=== PATIENT | male | born 1955 | race Caucasian/White ===

== ENCOUNTER 2020-09-26 10:05 | Day surgery (SDC) | payer SELFPAY ==
[2020-09-26] MEDS ORDERED: Ringers Lactate 1,000 ML IV ONE (10:47)
[2020-09-26] MEDS ORDERED: VANCOMYCIN/NS 1 gm 1 GM/250 ML BAG IV ONE (11:45)
[2020-09-26] MEDS ORDERED: VANCOMYCIN 1 GM/VIAL ONE (11:54)
[2020-09-26] MEDS ORDERED: MIDAZOLAM HCL 2 MG/2 ML INJ ONE (12:50)
[2020-09-26] MEDS ORDERED: LIDOCAINE 2% MPF 5 ML VIAL ONE (12:50)
[2020-09-26] MEDS ORDERED: propofoL 200 MG/20 ML VIAL IV ONE (12:50)
[2020-09-26] MEDS ORDERED: BUPIVACAINE 0.25% PF 10 ML VIAL ONE (12:50)
[2020-09-26] MEDS ORDERED: FENTANYL CITR 100 MCG/2 ML ONE (12:50)
[2020-09-26] MEDS ORDERED: dexAMETHasone 10 MG/ML VIAL ONE (12:50)
--- NOTE | 2020-09-26 13:18 | P.OP ---
Preoperative diagnosis: Central Back Infected Sebaceous Cyst with Abscess Postoperative diagnosis: Central Back Infected Sebaceous Cyst with Abscess Primary procedure: Wide local excision of Central Back Infected Sebaceous Cyst with Abscess Anesthesia: GETA + Local Estimated blood loss: <10cc Specimen: cultures and debridement tissues Findings: 6cmx 6cm down into subcutanous fat cyst w/abscess Complications: None Transferred to: Recovery Room Condition: Good
[2020-09-26] MEDS ORDERED: KETOROLAC 30 MG/ML INJ ONE (13:32)
[2020-09-26 13:38] VITALS: O2SAT 100
[2020-09-26 15:08] VITALS: BP 137/73; TEMP 97.6
--- NOTE | 2020-09-26 23:31 | OP ---
Date of Procedure: 09/26/2020 Surgeon: Sanjiv Chong MD, Preoperative Diagnosis: Central back infected sebaceous cyst with abscess. Postoperative Diagnosis: Central back infected sebaceous cyst with abscess. Procedure Performed: Wide local excision of central back infected sebaceous cyst with abscess. Anesthesia: General endotracheal with local with 0.25% Marcaine. Estimated Blood Loss: Less than 10 mL. Specimen: Cultures and debridement tissue. Findings: A 6 x 6 cm down to subcutaneous fat cyst with abscess consistent with subcutaneous infecte d cyst. Complications: None. Disposition: The patient was transferred to recovery room in good condition. Procedure In Detail: After informed consent was obtained, the patient was brought to the operating r oom and prepped and draped in the usual sterile fashion. After adequate anesthesia was achieved, a c ircular area was cut out around an infected sebaceous cyst with abscess as it was skin necrosis and m ultiple holes through the skin at this area. The abscess was cultured for both aerobic and anaerobic speciation circumferentially. Dissection continued down with electrocautery to encompass the entire cyst. Sebaceous material with abscess was encountered and this was all removed in its entirety unti l good clean bleeding tissue was left behind. The area was copiously irrigated multiple times until completely clear. Hemostasis was achieved with electrocautery. At this point, the wound was packed with Betadine-soaked gauze and sterile dressing placed over top. The patient tolerated the procedure well without evidence of complication and transferred to PACU in good condition. All counts were co rrect at the end of the case. PATEL/GALLO Voice ID: [id number] Report ID: [id number]
== END 2020-09-26 15:00 | disposition home or self-care (01) ==
LOC: OR 10:05
PROVIDERS: ATTEND Surgery
PROC: 0JB70ZZ Excision of Back Subcutaneous Tissue and Fascia, Open Approach (ICD-10-PCS; principal; 2020-09-26 13:15)
DX: L72.0 Epidermal cyst (principal); I96 Gangrene, not elsewhere classified; Z20.822 Contact with and (suspected) exposure to COVID-19
CPT/HCPCS: 87070; 87075; 87205; 88304; J1100; J2250; J2704; J3010; J3370; J7120; U0003